=== PATIENT | female | born 1990 | race Caucasian/White ===

== ENCOUNTER 2017-09-01 13:59 | Emergency (ER) | payer OTHER ==
[~2017-09-01] VITALS: Ht 162.6 cm; Wt 61.7 kg
[2017-09-01 15:31] LABS: microscopic required? NO
[2017-09-01 15:37] LABS: urine erythrocyte NEGATIVE (NEGATIVE)
[2017-09-01 17:10] VITALS: BP 129/73
== END 2017-09-01 17:10 | disposition home or self-care (01) ==
LOC: ED 13:59
PROVIDERS: Emergency Medicine
DX: M54.5 Low back pain (principal)